=== PATIENT | female | born 1980 | race Two or more races ===

== ENCOUNTER 2025-04-06 20:13 | Emergency (ER) | payer MEDICAID, OTHER ==
[~2025-04-06] VITALS: Ht 165.1 cm; Wt 93.5 kg
[2025-04-06 20:31] VITALS: BP 134/88; PULSE 87; RESP 20; TEMP 98.9; O2SAT 98
[2025-04-06] MEDS ORDERED: OXYCODONE W/ ACETAMINOPHEN 5/325MG TABLET PO ONE (21:15)
--- NOTE | 2025-04-06 21:22 | ED.PDOC ---
Musculoskeletal HPI Comments 44 y/o F, JOSE, presents to the ED for CC of s/p fall injury. EMS reports, patient is coming from home where she suffered a ground level fall off the last two steps of the stair case, twisting her left ankle and landing onto her left side. Following trauma, patient complains of left shoulder and left ankle pain. Upon arrival to the ED, no deformities are noted. Patient denies open head injury, cervical pain, or loss of conciseness. No other symptoms or modifying factors present at this time. Chief Complaint: Fall Injury Time Seen by MD: 20:45 Reviewed Notes: Nurses Notes, Sr. Payroll Processor Notes, Medications, Allergies Allergies: Coded Allergies: NO KNOWN ALLERGIES (Unverified , 04/06/25) Information Source: Patient, Emergency Med Personnel Mode of Arrival: EMS Location: Left Extremity Location: Ankle, Shoulder Timing: Hours Prehospital treatment: None Severity: Moderate Able to Move Extremity: Yes Bear Weight: Fully Pain: Moderate Mechanism: Twisting Circumstances: Fall Onset of Symptoms: After Trauma Symptoms: Pain DVT Risk Factors: NONE Last Tetanus: Unknown Associated signs and symptoms: Shoulder pain, Ankle pain Past Medical History PAST MEDICAL HISTORY: HTN Surgical History: Denies all surgeries [employer] TE[employer]ACH History: Denies all [employer]ER [employer] TE[employer]ACH Hx Family History Family History: Unknown Social History Smoker: Non-Smoker Alcohol: Denies ETOH Use Drugs: Denies Drug Use Lives In: Home Constitutional: denies: chills, diaphoresis, fatigue, fever, malaise, sweats, weakness, others EENTM: denies: blurred vision, double vision, ear bleeding, ear discharge, ear drainage, ear pain, ear ringing, eye pain, eye redness, hearing loss, mouth pain, mouth swelling, nasal discharge, nose bleeding, nose congestion, nose pain, photophobia, tearing, throat pain, throat swelling, voice changes, others Respiratory: denies: cough, hemoptysis, orthopnea, SOB at rest, shortness of breath, SOB with excertion, stridor, wheezing, others Cardiovascular: denies: chest pain, dizzy spells, diaphoresis, Dyspnea on exertion, edema, irregular heart beat, left arm pain, lightheadedness, palpitations, PND, syncope, others Gastrointestinal: denies: abdomen distended, abdominal pain, blood streaked bowels, constipated, diarrhea, dysphagia, difficulty swallowing, hematemesis, melena, nausea, poor appetite, poor fluid intake, rectal bleeding, rectal pain, vomiting, others Genitourinary: denies: abnormal vagina bleeding, burning, dyspareunia, dysuria, flank pain, frequency, hematuria, incontinence, pain, , vagina discharge, urgency, others Neurological: denies: dizziness, fainting, headache, left sided numbness, left sided weakness, numbness, paresthesia, pre-existing deficit, right sided numbne ss, right sided weakness, seizure, speech problems, tingling, tremors, weakness, others Musculoskeletal: reports: others (left shoulder pain, left ankle); denies: back pain, gout, joint pain, joint swelling, muscle pain, muscle stiffness, neck pain Integumetry: denies: bruises, change in color, change in hair/nails, dryness, laceration, lesions, lumps, rash, wounds, others Allergic/Immunocompromised: denies: Difficulty Healing, Frequent Infections, Hives, Itching, others Hematologic/Lymphatic: denies: anemia, blood clots, easy bleeding, easy bruising, swollen glands, others Endocrine: denies: excessive hunger, excessive sweating, excessive thirst, excessive urination, flushing, intolerance to cold, intolerance to heat, unexplained weight gain, unexplained weight loss, others Psychiatric: denies: anxiety, bipolar disorder, depression, hopeless, panic disorder, schizophrenia, sleepless, suicidal, others All Other Systems: Reviewed and Negative Physical Exam General Appearance: No Apparent Distress, Normal HEENT: Normal ENT Inspection, Pharynx Normal, TMs Normal Neck: Full Range of Motion, Non-Tender, Normal, Normal Inspection Respiratory: Chest Non-Tender, Lungs Clear, No Accessory Muscle Use, No Respiratory Distress, Normal Breath Sounds Cardiovascular: No Edema, No Murmur, No Gallop, Normal Peripheral Pulses, Regular Rate/Rhythm Breast Exam: Deferred Gastrointestinal: No Organomegaly, Non Tender, No Pulsatile Mass, Normal Bowel Sounds, Soft Genitalia: Deferred Pelvic: Deferred Rectal: Deferred Extremities: No calf tenderness, Normal capillary refill, Normal range of motion, No pedal edema, Tender (left trapezius) Musculoskeletal : Location: Left Extremity Location: Ankle, Shoulder Apperance: Normal, Tenderness Neurologic: Alert, fitter hand II-XII nml as Tested, No Motor Deficits, Normal Affect, Normal Mood, No Sensory Deficits Cerebellar Function: Normal Reflexes: Normal Skin: Dry, Normal Color, Warm Lymphatic: No Adenopathy Was a procedure done? Was a procedure done?: No Differential Diagnosis EXT Differential Diagnosis: Fracture, Sprain, Dislocation X-Ray, Labs, Meds, VS Vital Signs Date Time Temp Pulse Resp B/P (MAP) Pulse Ox O2 Delivery O2 Flow Rate FiO2 04/06/25 20:31 98.9 87 20 134/88 (103) 98 98.9 X-Ray, Labs, Meds, VS Comment Patient eloped, no answer for x-rays. Time of 1ST Reevaluation: 21:15 Reevaluation 1ST: Unchanged Patient Education/Counseling: Diagnosis, Treatment Family Education/Counseling: No Family Present Departure 1 Departure Time of Disposition: 02:17 Impression: Primary Impression: Left shoulder pain Qualified Codes: M25.512 - Pain in left shoulder Additional Impression: Left ankle pain Qualified Codes: M25.572 - Pain in left ankle and joints of left foot Disposition: 07 LEFT AWOL/ELOPED Condition: Fair Critical Care Note Critical Care Time?: No Stability Stability form required: No Heart Score Heart Score: Heart Score Response (Comments) Value History N/A 0 EKG N/A 0 Age N/A 0 Risk Factors N/A 0 Troponin N/A 0 Total 0 I personally scribed for ALYCE ASIF BLENDER SNUFF ([email or web address]) on 04/06/25 at 21:22. Electronically submitted by Julia Pereira ([email or web address]). I personally scribed for ALYCE ASIF BLENDER SNUFF ([email or web address]) on 04/06/25 at 21:26. Electronically submitted by Julia Pereira ([email or web address]). ALYCE ASIF BLENDER SNUFF April 06, 2025 21:22
== END 2025-04-07 02:16 | disposition left against medical advice (07) ==
LOC: EDBD 20:13 → ER 20:13
DX: M25.512 Pain in left shoulder (principal); M25.572 Pain in left ankle and joints of left foot; I10 Essential (primary) hypertension